=== PATIENT | female | born 1960 | race Caucasian/White ===

== ENCOUNTER 2018-12-14 22:03 | Emergency (ER) | payer MEDICAID ==
[~2018-12-14] VITALS: Ht 157.5 cm; Wt 68.0 kg
[2018-12-14] MEDS: PANTOPRAZOLE SODIUM 40 MG VIAL IV ONE (22:43)
[2018-12-14] MEDS: ONDANSETRON 4 MG/2 ML VIAL IV ONE (22:43)
[2018-12-14] MEDS: IV NORMAL SALINE 1000 ML BAG IV ONE (22:43)
[2018-12-14] MEDS ORDERED: ONDANSETRON 4 MG/2 ML VIAL ONE (22:45)
[2018-12-14] MEDS ORDERED: PANTOPRAZOLE SODIUM 40 MG VIAL ONE (22:45)
[2018-12-14 22:50] LABS: BASOPHILS % (AUTO) 0.4 % (0.0-2.0); EOSINOPHILS # (AUTO) 0.2 K/uL (0.0-0.7); EOSINOPHILS % (AUTO) 2.3 % (0.0-7.0); HEMOGLOBIN 13.5 g/dL (10.9-14.3); LYMPHOCYTES # (AUTO) 1.4 K/uL (20.0-40.0); LYMPHOCYTES % (AUTO) 15.8 % (20.5-51.5); MEAN CORPUSCULAR HEMOGLOBIN 31.1 uug (24.7-32.8); MEAN CORPUSCULAR HGB CONC 34 g/dL (32.3-35.6); MEAN CORPUSCULAR VOLUME 92.5 fL (75.5-95.3); MONOCYTES # (AUTO) 0.4 K/uL (2.0-10.0); MONOCYTES % (AUTO) 4.2 % (0.0-11.0); NEUTROPHILS # (AUTO) 6.6 K/uL (1.8-8.9); NEUTROPHILS % (AUTO) 77.3 % (38.5-71.5); PLATELET COUNT (AUTO) 197 K/uL (179-408); RED BLOOD CELL COUNT(AUTO) 4.33 MIL/uL (3.63-4.92); WHITE BLOOD COUNT (AUTO) 8.6 K/uL (3.8-11.8)
[2018-12-14 23:13] LABS: CREATININE 0.7 mg/dL (0.6-1.3); POTASSIUM 4.1 mmol/L (3.5-5.1)
[2018-12-14 23:19] LABS: BILIRUBIN,DIRECT 0.1 mg/dL (0.0-0.2); BILIRUBIN,TOTAL 0.6 mg/dL (0.2-1.0); TOTAL PROTEIN, SERUM 7.3 g/dL (6.4-8.2)
[2018-12-14] MEDS: MAG HYDROX/AL HYDROX/SIMETH 30 ML LIQUID UDC PO ONE (23:34)
[2018-12-14] MEDS: LIDOCAINE VISCUS 2% 15 ML UDC MM ONE (23:34)
[2018-12-14] MEDS ORDERED: MAG HYDROX/AL HYDROX/SIMETH 30 ML LIQUID UDC ONE (23:36)
[2018-12-14] MEDS ORDERED: LIDOCAINE VISCUS 2% 15 ML UDC ONE (23:36)
[2018-12-14] MEDS: MORPHINE SULFATE 4 MG/1 ML DISP.SYRIN IV ONE (23:47)
[2018-12-14] MEDS ORDERED: MORPHINE SULFATE 4 MG/1 ML DISP.SYRIN ONE (23:47)
[2018-12-14] MEDS ORDERED: HYDROMORPHONE 1 MG/1 ML DISP.SYRIN ONE (23:54)
[2018-12-15] MEDS: HYDROMORPHONE 1 MG/1 ML DISP.SYRIN IV ONE (00:21)
[2018-12-15] MEDS ORDERED: METOCLOPRAMIDE HCL 10 MG/2 ML VIAL ONE (01:22)
[2018-12-15] MEDS ORDERED: diphenhydrAMINE 50 MG/1 ML VIAL ONE (01:22)
[2018-12-15] MEDS: diphenhydrAMINE 50 MG/1 ML VIAL IV ONE (01:24)
[2018-12-15] MEDS: METOCLOPRAMIDE HCL 10 MG/2 ML VIAL IV ONE (01:24)
[2018-12-15 03:36] VITALS: BP 97/52
== END 2018-12-15 03:10 | disposition home or self-care (01) ==
LOC: ER 22:03
DX: R10.13 Epigastric pain (principal); R11.10 Vomiting, unspecified; E78.00 Pure hypercholesterolemia, unspecified
CPT/HCPCS: 36415; 71045; 74021; 83690; 85025; 93005; A4663; C9113; J1170; J1200; J2270; J2405; J2765; J7030